=== PATIENT | female | born 1955 | race Caucasian/White ===

== ENCOUNTER → 2016-11-18 | Outpatient (CLI) | payer BC ==
--- NOTE | 2016-11-18 16:06 | CR ---
EXAMINATION: Thoracic spine HISTORY: Back pain COMPARISON: None TECHNIQUE: AP and lateral views obtained of the thoracic spine. FINDINGS: There is a trace levocurvature of the midthoracic spine. Mild to moderate wedge deformitie s are noted within the midthoracic spine. There is generalized osteopenia. The visualized lungs are clear. IMPRESSION: 1. Mild to moderate wedge deformities noted within the mid thoracic spine likely at T8 and T9. 2. Otherwise generalized osteopenia.
== END ==
LOC: MW.CHFP 14:00
PROVIDERS: ATTEND Physician Assistant
DX: M54.9 Dorsalgia, unspecified (principal); M43.8X4 Other specified deforming dorsopathies, thoracic region; M85.88 Other specified disorders of bone density and structure, other site
CPT/HCPCS: 72070; 72070-26

== ENCOUNTER → 2016-11-24 | Outpatient (CLI) | payer BC ==
--- NOTE | 2016-11-24 16:03 | XA ---
Exam Date: 11/24/16 Patient's Age: 60 HEIGHT: 67.5 in WEIGHT: 175.0 lbs INDICATIONS: Back Pain, , Hysterectomy, Low Calcium Intake, Osteoporotic, Post Menopausal, Tobacco User FRACTURES: TREATMENTS: Calcium, Vitamin D ASSESSMENT: The BMD measured at AP Spine L1-L4 is 0.778 g/cm2 with a T-score of -3.4. This patient is considered osteoporotic according to World Health Organization (WHO) criteria. Fracture risk is high. Pharmacological treatment, if not already prescribed, should be started. A followup Bone density test is recommended in one year to monitor response to therapy. The BMD measured at Femur Troch Mean is 0.558 g/cm2 with a T-score of -2.5 is low. Fracture risk is high. A followup DXA test is recommended in one year to monitor response to therapy. RESULTS: Site Region Age Classification T-Score BMD AP Spine L1-L4 60.9 Osteoporosis -3.4 0.778 g/cm2 Dual Femur Neck Mean 60.9 Osteopenia -2.4 0.705 g/cm2 Dual Femur Neck Mean 59.1 Osteopenia -2.3 0.719 g/cm Dual Femur Troch Mean 60.9 N/A -2.5 0.558 g/cm2 Dual Femur Troch Mean 59.1 N/A -2.4 0.580 g/cm2 Dual Femur Total Mean 60.9 Osteoporosis -2.6 0.674 g/cm2 Dual Femur Total Mean 59.1 Osteoporosis -2.5 0.698 g/cm2 World Health Organization - Criteria for post-menopausal, women: Normal: T-Score at or above -1 SD Osteopenia: T-Score between -1 and -2.5 SD Osteoporosis: T-Score at or below -2.5 SD RECOMMENDATION: Pharmacologic treatment recommendations & Initiate pharmacologic treatment: - In those with hip or vertebral (clinical or asymptomatic) fractures - In those with T -scores <-2.5 at the femoral neck, total hip, or lumbar spine by DXA - In postmenopausal women and men age 50 and older with low bone mass (T-score between -1.0 and -2.5, osteopenia) at the femoral neck, total hip, or lumbar spine by DXA and a 10-year hip fracture probability >3 % or a 10-year major osteoporosis-related fracture probability >20% based on the [place]-adapted WHO absolute fracture risk model (Fracture Risk Algorithm (FRAX); www. NOF.org and www.shef.ac.uk/FRAX) FOLLOW UP: People with diagnosed cases of osteoporosis or at high risk for fracture should have regular bone mineral density tests. For patients eligible for Medicare, routine testing is allowed once every 2 years. The testing frequency can be increased to 1 year for patients who have rapidly progressing disease, those who are reviewing or discontinuing medial therapy to restore bone mass, or have additional risk factors. People with diagnosed cases of osteoporosis or osteopenia should be regularly tested for bone mineral density. For patient eligible for Medicare, routine testing is allowed once every 2 years. The testing frequency can be increased to 1 year for patients who have rapidly progressing disease, or for those who are receiving medial therapy to restore bone mass. [facility] -- [place] [place] [phone] - FAX: [phone] DECLAN
== END ==
LOC: MW.DI 10:50
PROVIDERS: ATTEND Physician Assistant
DX: M81.0 Age-related osteoporosis without current pathological fracture (principal)
CPT/HCPCS: 77080; 77080-26

== ENCOUNTER → 2016-12-02 | Outpatient (CLI) | payer BC ==
--- NOTE | 2016-12-03 09:13 | MR ---
EXAMINATION: MRI of thoracic spine HISTORY: Compression COMPARISON: Radiographs dated 11/18/2016 TECHNIQUE: Multiplanar and multisequence images obtained through the thoracic spine without contrast . FINDINGS: There is mild thoracic kyphosis otherwise the thoracic spinal alignment is unremarkable. M ild to moderate wedge compression deformities are noted at T8, T9, and T10. There is edema within th e T9 and T10 vertebral bodies suggesting an acute to subacute nature. There is no significant retrop ulsion. There is a hemangioma within the T5 vertebral body. The spinal cord signal appears normal. T he paravertebral soft tissues appear normal. T1-T2: Unremarkable. T2-T3: Tiny right para midline disc protrusion without significant spinal canal or neural foraminal stenosis. T3-T4: Small diffuse disc bulge without significant spinal canal or neural foraminal stenosis. T4-T7: Unremarkable. T7-T8: Tiny diffuse disc bulge without significant spinal canal or neural foraminal stenosis. T8-T9: Small diffuse disc bulge without significant spinal canal stenosis. Mild bilateral neural for aminal stenosis. T9-T10: Small diffuse disc bulge without significant spinal canal stenosis. Mild to moderate bilater al neural foraminal stenosis. T10-T11: Unremarkable. T11-T12: Tiny diffuse disc bulge without significant spinal canal or neural foraminal stenosis. T12-L1: Unremarkable. IMPRESSION: 1. Acute to subacute mild to moderate compression deformities at T9-T10. Chronic mild compression de formity is noted at T8. 2. Mild multilevel degenerative disc disease noted with individual details above.
== END ==
LOC: MW.MRI 14:38
PROVIDERS: ATTEND Physician Assistant
DX: S22.000A Wedge compression fracture of unspecified thoracic vertebra, initial encounter for closed fracture (principal); M51.34 Other intervertebral disc degeneration, thoracic region; X58.XXXA Exposure to other specified factors, initial encounter
CPT/HCPCS: 72146; 72146-26

== ENCOUNTER 2024-01-18 13:35 | Emergency (ER) | payer BC, MEDICARE ==
[2024-01-18] MEDS: Sodium Chloride 0.9% 1,000 ML IV ONE (14:04)
[2024-01-18 14:07] LABS: BASOPHILS ABSOLUTE AUTO 0.07 K/uL (0.00-0.20); BASOPHILS PERCENT AUTO 0.5 % (0.0-1.0); EOSINOPHILS PERCENT AUTO 0.7 % (0.0-6.0); HEMATOCRIT 36.1 % (37.0-47.0); HEMOGLOBIN 12.1 g/dL (12.0-16.0); IMMATURE GRAN PERCENT AUTO 0.7 % (0.0-0.4); LYMPHOCYTES ABSOLUTE AUTO 2.08 K/uL (1.00-4.80); LYMPHOCYTES PERCENT AUTO 15.1 % (24.0-44.0); MEAN CORPUSCULAR HEMOGLOBIN 29.2 pg (28.0-32.0); MEAN CORPUSCULAR HGB CONC 33.5 g/dL (32.0-36.0); MEAN CORPUSCULAR VOLUME 87.2 fL (83.0-99.0); MEAN PLATELET VOLUME 10.2 fL (9.4-12.3); MONOCYTES ABSOLUTE AUTO 1.03 K/uL (0.00-0.80); MONOCYTES PERCENT AUTO 7.5 % (0.0-8.0); NEUTROPHILS PERCENT AUTO 75.5 % (41.0-71.0); PLATELET COUNT,PLT 406 K/uL (150-400); RED BLOOD CELL COUNT 4.14 M/uL (4.10-5.30); WHITE BLOOD CELL COUNT,WBC 13.78 K/uL (3.9-11.3)
[2024-01-18] MEDS: Ondansetron 4 MG/2 ML SDV IVPUSH ONE (14:16)
[2024-01-18 14:25] LABS: A/G RATIO 0.6 (0.9-1.6); ALBUMIN 2.6 g/dL (3.4-5.0); BILIRUBIN TOTAL 0.5 mg/dL (0.2-1.0); CALCIUM 9.1 mg/dL (8.5-10.1); CARBON DIOXIDE,CO2 27.3 mmol/L (21.0-32.0); EST CRCL DRUG DOSING (CG) 52.36 mL/min; MAGNESIUM 1.8 mg/dL (1.8-2.4); POTASSIUM,K 3.6 mmol/L (3.5-5.1); PROTEIN TOTAL,TP 7.3 g/dL (6.4-8.2)
[2024-01-18] MEDS: Iopamidol 755 MG/ML 500 ML Multipack Bottle IVPUSH STA (15:40)
[2024-01-18 15:41] LABS: APPEARANCE,URINE CLEAR; BILIRUBIN,URINE NEGATIVE (NEGATIVE); COLOR,URINE YELLOW; GLUCOSE,URINE NEGATIVE (NEGATIVE); KETONES,URINE TRACE mg/dL (NEGATIVE); LEUKOCYTE ESTERASE,URINE NEGATIVE (NEGATIVE); NITRITE,URINE NEGATIVE (NEGATIVE); OCCULT BLOOD,URINE TRACE-INTACT (NEGATIVE); PROTEIN,URINE NEGATIVE (NEGATIVE); UROBILINOGEN,URINE 0.2 EU/dL (<2.0)
[2024-01-18 16:08] LABS: BACTERIA,URINE RARE (NEGATIVE); EPITHELIAL CELLS,URINE RARE (NONE-FEW); RBC,URINE 0-2 (0-2/HPF)
[2024-01-18 16:09] LABS: INR 1.07 (0.86-1.11); PTT,PARTIAL THROMBOPLSTIN TIME 31.3 SEC (23.9-30.7)
[2024-01-18 17:00] VITALS: BP 124/87; PULSE 98
== END 2024-01-18 17:00 | disposition home or self-care (01) ==
LOC: MW.ED 13:35
DX: K86.9 Disease of pancreas, unspecified (principal); Z75.8 Other problems related to medical facilities and other health care; Z79.899 Other long term (current) drug therapy
CPT/HCPCS: 36415; 71045; 74177; 80053; 81001; 83690; 83735; 85025; 85610; 85730; 96361; 96374; 99284; J2405; J7030; Q9967

== ENCOUNTER 2024-01-23 21:05 | Emergency (ER) | payer MEDICARE ==
[2024-01-23 21:25] LABS: BASOPHILS ABSOLUTE AUTO 0.07 K/uL (0.00-0.20); BASOPHILS PERCENT AUTO 0.6 % (0.0-1.0); EOSINOPHILS ABSOLUTE AUTO 0.21 K/uL (0.00-0.45); EOSINOPHILS PERCENT AUTO 1.7 % (0.0-6.0); HEMATOCRIT 33.6 % (37.0-47.0); HEMOGLOBIN 11.3 g/dL (12.0-16.0); IMMATURE GRAN ABSOLUTE AUTO 0.07 K/uL (0.00-0.05); IMMATURE GRAN PERCENT AUTO 0.6 % (0.0-0.4); LYMPHOCYTES ABSOLUTE AUTO 1.68 K/uL (1.00-4.80); LYMPHOCYTES PERCENT AUTO 13.2 % (24.0-44.0); MEAN CORPUSCULAR HEMOGLOBIN 29.2 pg (28.0-32.0); MEAN CORPUSCULAR HGB CONC 33.6 g/dL (32.0-36.0); MEAN CORPUSCULAR VOLUME 86.8 fL (83.0-99.0); MEAN PLATELET VOLUME 9.6 fL (9.4-12.3); MONOCYTES ABSOLUTE AUTO 0.96 K/uL (0.00-0.80); MONOCYTES PERCENT AUTO 7.5 % (0.0-8.0); NEUTROPHILS ABSOLUTE AUTO 9.73 K/uL (1.80-7.70); NEUTROPHILS PERCENT AUTO 76.4 % (41.0-71.0); PLATELET COUNT,PLT 407 K/uL (150-400); RED BLOOD CELL COUNT 3.87 M/uL (4.10-5.30); WHITE BLOOD CELL COUNT,WBC 12.72 K/uL (3.9-11.3)
[2024-01-23] MEDS: Sodium Chloride 0.9% 1,000 ML IV STA (21:51)
[2024-01-23] MEDS: Sodium Chloride 0.9% 2.5 ML Syringe FLUSH PRN (21:52)
[2024-01-23] MEDS: Sodium Chloride 0.9% 10 ML Syringe FLUSH PRN (21:52)
[2024-01-23 21:56] LABS: A/G RATIO 0.5 (0.9-1.6); ALBUMIN 2.4 g/dL (3.4-5.0); BILIRUBIN TOTAL 0.5 mg/dL (0.2-1.0); CALCIUM 8.8 mg/dL (8.5-10.1); CARBON DIOXIDE,CO2 25.6 mmol/L (21.0-32.0); CREATININE 0.7 mg/dL (0.6-1.0); EST CRCL DRUG DOSING (CG) 74.8 mL/min; MAGNESIUM 2.1 mg/dL (1.8-2.4); POTASSIUM,K 3.9 mmol/L (3.5-5.1); PROTEIN TOTAL,TP 6.9 g/dL (6.4-8.2)
[2024-01-23 22:04] LABS: BILIRUBIN,URINE MODERATE (NEGATIVE); COLOR,URINE YELLOW; GLUCOSE,URINE NEGATIVE (NEGATIVE); KETONES,URINE TRACE mg/dL (NEGATIVE); LEUKOCYTE ESTERASE,URINE SMALL (NEGATIVE); NITRITE,URINE NEGATIVE (NEGATIVE); OCCULT BLOOD,URINE TRACE-INTACT (NEGATIVE); PROTEIN,URINE TRACE mg/dL (NEGATIVE)
[2024-01-23 22:05] LABS: APPEARANCE,URINE SLT CLOUDY
[2024-01-23 22:10] LABS: BACTERIA,URINE FEW (NEGATIVE); MUCUS,URINE LIGHT (NONE-MOD); SQUAMOUS EPITHELIAL CELLS,UR FEW
[2024-01-23] MEDS: Potassium Chloride 20 MEQ Tab.ER PO ONE (22:48)
[2024-01-23 23:01] VITALS: BP 140/77; PULSE 82
== END 2024-01-23 22:59 | disposition home or self-care (01) ==
LOC: MW.ED 21:05
DX: E86.0 Dehydration (principal); R63.0 Anorexia; Z68.25 Body mass index [BMI] 25.0-25.9, adult; E78.00 Pure hypercholesterolemia, unspecified; Z79.899 Other long term (current) drug therapy; Z75.8 Other problems related to medical facilities and other health care
CPT/HCPCS: 36415; 80053; 81001; 83735; 84484; 85025; 93005; 96360; 99285; A9270; J3490; J7030

== ENCOUNTER 2024-02-02 16:34 | Emergency (ER) | payer MEDICARE ==
[2024-02-02] MEDS: Sodium Chloride 0.9% 10 ML Syringe FLUSH PRN (17:35)
[2024-02-02] MEDS: Sodium Chloride 0.9% 2.5 ML Syringe FLUSH PRN (17:35)
[2024-02-02 17:39] LABS: BASOPHILS ABSOLUTE AUTO 0.06 K/uL (0.00-0.20); BASOPHILS PERCENT AUTO 0.4 % (0.0-1.0); EOSINOPHILS ABSOLUTE AUTO 0.13 K/uL (0.00-0.45); EOSINOPHILS PERCENT AUTO 0.8 % (0.0-6.0); HEMATOCRIT 34.4 % (37.0-47.0); HEMOGLOBIN 11.5 g/dL (12.0-16.0); IMMATURE GRAN ABSOLUTE AUTO 0.11 K/uL (0.00-0.05); IMMATURE GRAN PERCENT AUTO 0.7 % (0.0-0.4); LYMPHOCYTES ABSOLUTE AUTO 1.41 K/uL (1.00-4.80); LYMPHOCYTES PERCENT AUTO 8.9 % (24.0-44.0); MEAN CORPUSCULAR HEMOGLOBIN 28.5 pg (28.0-32.0); MEAN CORPUSCULAR HGB CONC 33.4 g/dL (32.0-36.0); MEAN CORPUSCULAR VOLUME 85.1 fL (83.0-99.0); MEAN PLATELET VOLUME 10.3 fL (9.4-12.3); MONOCYTES PERCENT AUTO 6.3 % (0.0-8.0); NEUTROPHILS PERCENT AUTO 82.9 % (41.0-71.0); PLATELET COUNT,PLT 413 K/uL (150-400); RED BLOOD CELL COUNT 4.04 M/uL (4.10-5.30); WHITE BLOOD CELL COUNT,WBC 15.81 K/uL (3.9-11.3)
[2024-02-02 18:27] LABS: A/G RATIO 0.5 (0.9-1.6); ALANINE AMINOTRANSFERASE,ALT 44 IU/L (14-63); ALBUMIN 2.4 g/dL (3.4-5.0); ALKALINE PHOSPHATASE 301 U/L (46-116); ASPARTATE AMNIOTRANSFERASE,AST 82 IU/L (15-37); BILIRUBIN TOTAL 0.8 mg/dL (0.2-1.0); BLOOD UREA NITROGEN,BUN 17 mg/dL (7.0-18.0); CARBON DIOXIDE,CO2 24.3 mmol/L (21.0-32.0); CHLORIDE,CL 93 mmol/L (98-107); CREATININE 0.7 mg/dL (0.6-1.0); EST CRCL DRUG DOSING (CG) 77.59 mL/min; ESTIMATED GFR 94 mL/min (>60); GLUCOSE RANDOM 78 mg/dL (74-106); MAGNESIUM 1.9 mg/dL (1.8-2.4); POTASSIUM,K 4.1 mmol/L (3.5-5.1); SODIUM,NA 131 mmol/L (136-145); TSH ULTRASENSITIVE 1.75 uIU/mL (0.36-3.74)
[2024-02-02 18:40] LABS: LIPASE 430 U/L (16-77)
[2024-02-02] MEDS: Ondansetron 4 MG/2 ML SDV IVPUSH ONE (18:49)
[2024-02-02] MEDS: Iopamidol 755 MG/ML 500 ML Multipack Bottle IVPUSH STA (19:15)
[2024-02-02] MEDS: Acetaminophen 325 MG Tab PO ONE (21:06)
[2024-02-02 21:08] VITALS: BP 97/70; PULSE 103
== END 2024-02-02 21:10 | disposition home or self-care (01) ==
LOC: MW.ED 16:34
DX: R53.1 Weakness (principal); Z79.899 Other long term (current) drug therapy
CPT/HCPCS: 36415; 71275; 74177; 80053; 83690; 83735; 84443; 84484; 85025; 85379; 93005; 96374; 99285; A9270; J2405; J3490; Q9967

== ENCOUNTER 2024-03-15 08:17 | Emergency (ER) | payer MEDICARE ==
[2024-03-15 09:13] LABS: HEMATOCRIT 28.9 % (37.0-47.0); HEMOGLOBIN 9.6 g/dL (12.0-16.0); MEAN CORPUSCULAR HEMOGLOBIN 29.3 pg (28.0-32.0); MEAN CORPUSCULAR HGB CONC 33.2 g/dL (32.0-36.0); MEAN CORPUSCULAR VOLUME 88.1 fL (83.0-99.0); MEAN PLATELET VOLUME 9.8 fL (9.4-12.3); NRBC ABSOLUTE 0.02 K/uL (0.00-0.02); NRBC PERCENT 0.6 /100WBC (0.0-0.2); PLATELET COUNT,PLT 169 K/uL (150-400); RED BLOOD CELL COUNT 3.28 M/uL (4.10-5.30); WHITE BLOOD CELL COUNT,WBC 3.19 K/uL (3.9-11.3)
[2024-03-15] MEDS: cefTRIAXone 1 GM in Sodium Chloride 0.9% 50 ML IV ONE (09:13)
[2024-03-15] MEDS: Sodium Chloride 0.9% 2.5 ML Syringe FLUSH PRN (09:14)
[2024-03-15] MEDS: Sodium Chloride 0.9% 10 ML Syringe FLUSH PRN (09:14)
[2024-03-15 09:49] LABS: A/G RATIO 0.6 (0.9-1.6); ALBUMIN 2.2 g/dL (3.4-5.0); BILIRUBIN TOTAL 0.9 mg/dL (0.2-1.0); CALCIUM 8.8 mg/dL (8.5-10.1); CARBON DIOXIDE,CO2 28.2 mmol/L (21.0-32.0); CREATININE 0.6 mg/dL (0.6-1.0); EST CRCL DRUG DOSING (CG) 87.27 mL/min; INR 1.12 (0.86-1.11); POTASSIUM,K 3.5 mmol/L (3.5-5.1); PROTEIN TOTAL,TP 5.7 g/dL (6.4-8.2)
[2024-03-15 09:59] LABS: LACTIC ACID 1.6 mmol/L (0.4-2.0)
[2024-03-15 10:17] LABS: BASOPHILS PERCENT MAN 0 % (0-1); EOSINOPHILS ABSOLUTE MAN 0.06 K/uL (0.00-0.45); EOSINOPHILS PERCENT MAN 2 % (0-6); LYMPHOCYTES ABSOLUTE MAN 1.24 K/uL (1.00-4.80); LYMPHOCYTES PERCENT MAN 39 % (24-44); MONOCYTES ABSOLUTE MAN 0.29 K/uL (0.00-0.80); MONOCYTES PERCENT MAN 9 % (0-8); SEG NEUTROPHILS PERCENT MAN 50 % (41-71)
[2024-03-15 11:40] VITALS: BP 106/72; PULSE 94
== END 2024-03-15 11:36 | disposition home or self-care (01) ==
LOC: MW.ED 08:17
DX: K86.9 Disease of pancreas, unspecified (principal); Z90.710 Acquired absence of both cervix and uterus; Z75.8 Other problems related to medical facilities and other health care; Z79.899 Other long term (current) drug therapy; Z88.8 Allergy status to other drugs, medicaments and biological substances
CPT/HCPCS: 36415; 80053; 83605; 85025; 85610; 87040; 93971; 96365; 99284; J0696; J3490; 99283

== ENCOUNTER → 2024-03-15 | Day surgery (SDC) | payer MEDICARE ==
[~2024-03-15] MED LIST: Bupivacaine 0.5% 30 ML SDV ONE; Ketamine HCL/NACL, ISO-OSM 50 MG/5 ML Syringe ONE; Lidocaine 1% 20 ML MDV ONE; Midazolam 1 MG/ML 2 ML SDV ONE; Sodium Chloride 0.9% 10 ML Syringe FLUSH PRN; Sodium Chloride 0.9% 2.5 ML Syringe FLUSH PRN; Sodium Chloride 0.9% 20 ML SDV IV PRN; ceFAZolin 2 GM in Sodium Chloride 0.9% 50 ML IV ONE; dexmedeTOMIDine HCl 200 MCG/2 ML SDV ONE
[2024-03-15] MEDS: Lactated Ringers 1,000 ML IV SCH (07:15)
[2024-03-15 07:21] VITALS: BP 85/57; PULSE 98
== END ==
LOC: MW.SDS 06:42
PROVIDERS: ATTEND Surgery
DX: Z45.2 Encounter for adjustment and management of vascular access device (principal); Z53.8 Procedure and treatment not carried out for other reasons; E78.00 Pure hypercholesterolemia, unspecified; F17.210 Nicotine dependence, cigarettes, uncomplicated
CPT/HCPCS: J0665; J1642; J2250; J7120; J3490